=== PATIENT | female | born 1995 | race African-American/Black ===

== ENCOUNTER 2017-01-10 19:19 | Emergency (ER) | payer OTHER ==
[2017-01-10] MEDS ORDERED: traMADol HCl 50 MG TAB ONE (20:55)
== END 2017-01-10 21:05 | disposition home or self-care (01) ==
LOC: BURERS 19:19
DX: O9A.212 Injury, poisoning and certain other consequences of external causes complicating pregnancy, second trimester (principal); S23.3XXA Sprain of ligaments of thoracic spine, initial encounter; O99.342 Other mental disorders complicating pregnancy, second trimester; F32.9 Major depressive disorder, single episode, unspecified; W18.30XA Fall on same level, unspecified, initial encounter
CPT/HCPCS: 99283

== ENCOUNTER 2017-02-17 08:18 | Emergency (ER) | payer OTHER ==
[2017-02-17] MEDS ORDERED: hydrOXYzine 25 MG TAB ONE (08:41)
== END 2017-02-17 08:50 | disposition home or self-care (01) ==
LOC: BURERS 08:18
DX: T78.40XA Allergy, unspecified, initial encounter (principal); H02.841 Edema of right upper eyelid; F32.9 Major depressive disorder, single episode, unspecified
CPT/HCPCS: 99283

== ENCOUNTER 2017-02-19 07:54 | Emergency (ER) | payer OTHER | END 2017-02-19 08:26 | disposition home or self-care (01) | LOC: BURERS 07:54 | DX: T78.40XA Allergy, unspecified, initial encounter (principal); F32.9 Major depressive disorder, single episode, unspecified; Z79.899 Other long term (current) drug therapy | CPT/HCPCS: 99283 ==

== ENCOUNTER 2017-12-13 08:06 | Emergency (ER) | payer OTHER ==
[2017-12-13] MEDS ORDERED: CEFAZOLIN 1 GM VIAL ONE (08:31)
[2017-12-13] MEDS ORDERED: Water For Injection,Sterile 20 ML ONE (08:32)
[2017-12-13] MEDS ORDERED: Ketorolac Tromethamine 30 MG/ML VIAL ONE (08:54)
--- NOTE | 2017-12-13 20:23 | RAD ---
LEFT ANKLE THREE VIEWS: Date: 12-13-17 FINDINGS: No fracture or opaque foreign body is seen. The ankle joint appears normal. A tiny calcaneal spur is beginning to form. IMPRESSION: No acute finding. POS: HOME
== END 2017-12-13 09:00 | disposition home or self-care (01) ==
LOC: BURERS 08:06
DX: S91.032A Puncture wound without foreign body, left ankle, initial encounter (principal); F32.9 Major depressive disorder, single episode, unspecified; W22.8XXA Striking against or struck by other objects, initial encounter; Y93.19 Activity, other involving water and watercraft
CPT/HCPCS: 96372; J0690; J1885

== ENCOUNTER 2019-04-19 16:09 | Emergency (ER) | payer OTHER | END 2019-04-19 17:17 | disposition home or self-care (01) | LOC: BURERS 16:09 | DX: S51.812A Laceration without foreign body of left forearm, initial encounter (principal); Z79.899 Other long term (current) drug therapy; W23.0XXA Caught, crushed, jammed, or pinched between moving objects, initial encounter | CPT/HCPCS: 12002 ==

== ENCOUNTER 2019-07-12 08:45 | Emergency (ER) | payer OTHER ==
[2019-07-12] MEDS ORDERED: Bicillin CR 1.2 MILL UNITS/2 ML SYRINGE ONE (09:11)
== END 2019-07-12 09:21 | disposition home or self-care (01) ==
LOC: BURERS 08:45
DX: J02.9 Acute pharyngitis, unspecified (principal)
CPT/HCPCS: 96372; 99282; J0558

== ENCOUNTER 2019-11-07 16:05 | Emergency (ER) | payer OTHER ==
[~2019-11-07 16:05] MED LIST: Iopamidol 370 76% 100 ML VIAL ONE
[2019-11-07] MEDS ORDERED: Adenosine 6 MG/2 ML VIAL ONE (16:36)
[2019-11-07] MEDS ORDERED: Lorazepam 2 MG/ML VIAL ONE (17:03)
[2019-11-07 17:04] LABS: ALT (SGPT) 35 U/L (8-55); AST (SGOT) 28 U/L (5-34); Albumin 4.8 g/dL (3.5-5.0); Alkaline Phosphatase 55 U/L (40-110); Anion Gap 16 mmol/L (10-20); BUN (Urea Nitrogen) 13 mg/dL (7.0-18.7); Bilirubin, Total 0.5 mg/dL (0.2-1.2); Calc. Creatinine Clearance 0 mL/min (70-130); Calcium 9.8 mg/dL (7.8-10.44); Carbon Dioxide 22 mmol/L (22-29); Chloride 103 mmol/L (98-107); Estimated GFR-MDRD Greater than 90; Globulin 3.2 g/dL (2.4-3.5); Glucose 91 mg/dL (70-105); Sodium 137 mmol/L (136-145)
[2019-11-07 17:07] LABS: Eosinophils 1 % (0-10); Hemoglobin 14.6 g/dL (12.0-16.0); Lymphocytes 15 % (21-51); MDiff Complete? YES; Macrocytosis SLIGHT = 6-15 cells (100X) (0-5/hpf); Mean Corpuscular HGB CONC 32.6 g/dL (32.0-36.0); Mean Corpuscular Hemoglobin 33.6 pg (27.0-31.0); Mean Platelet Volume 8.1 fL (7.4-10.4); Monocytes 6 % (0-10); Neutrophil 78 % (42-75); Platelet Count 329 thou/uL (130-400); Red Blood Cell (RBC) Count 4.33 mill/uL (4.20-5.40); White Blood Cell (WBC) Count 8.3 thou/uL (4.8-10.8)
[2019-11-07 19:02] LABS: BHCG - Serum Negative (NEGATIVE); Pregs Control Background? CLEAR/WHITE (CLR/WHITE); Pregs Control Bar Appear? YES (CONTROL BAR)
--- NOTE | 2019-11-07 19:34 | RAD ---
PORTABLE CHEST 11/07/19 An AP portable film at 1637 is compared with a 06/30/16 study. The heart is normal in size and the lungs are clear. No infiltrate or effusion was seen. There is no vascular congestion, edema, or pleural effusion. IMPRESSION: No acute thoracic finding. POS: HOME
--- NOTE | 2019-11-07 19:37 | CT ---
CT ANGIO OF THE CHEST 11/07/[address] of the chest was done after a bolus of IV contrast. The timing of the study is less than op timal leading to a medium to low sensitivity study. Allowing for the above limitation, no large emboli are seen in the larger pulmonary artery branches. Small emboli in mid to distal branches would be missed on this exam. There is no sign of pericardial effusion, mediastinal mass, or adenopathy of concern. The lungs are clear. No infiltrates were presen t. The adrenal glands were unremarkable. A small cyst is seen in the upper pole of the right kidney. IMPRESSION: Medium to low sensitivity study showing no evidence of pulmonary embolism in the larger branches. Findings discussed with Dr. Sánchez at 1926 on 11/07/2019. POS: HOME
[2019-11-07] MEDS ORDERED: Metoprolol Tartrate 5 MG/5 ML VIAL ONE (20:05)
== END 2019-11-07 20:43 | disposition short-term general hospital (02) ==
LOC: BURERS 16:05
DX: R07.9 Chest pain, unspecified (principal); R00.0 Tachycardia, unspecified
CPT/HCPCS: 71045; 71275; 80053; 84443; 84484; 84703; 85025; 85379; 93005; 96361; 96374; 96375; J0153; J2060; Q9967

== ENCOUNTER 2020-08-12 07:59 | Emergency (ER) | payer OTHER, SELFPAY ==
[2020-08-12] MEDS ORDERED: Ibuprofen 200 MG TAB ONE (08:15)
--- NOTE | 2020-08-12 18:25 | RAD ---
LEFT THUMB THREE VIEWS: Date: 08-12-2020 FINDINGS: No fracture was seen. The joints appear normal. No dislocation was apparent at this time. A vague albin ency in the base of the proximal phalanx on the oblique view does not hold up on any other view. IMPRESSION: No definite acute finding. POS: HOME
== END 2020-08-12 08:44 | disposition home or self-care (01) ==
LOC: BURERS 07:59
DX: S63.602A Unspecified sprain of left thumb, initial encounter (principal); X50.1XXA Overexertion from prolonged static or awkward postures, initial encounter

== ENCOUNTER 2020-10-26 20:06 | Emergency (ER) | payer MEDICAID ==
--- NOTE | 2020-10-27 07:15 | RAD ---
SACRUM AND COCCYX: 10/26/20 TECHNIQUE: Three views are submitted. FINDINGS: No true fracture is appreciated, however, on one of the views the distance between the last coccygeal segment and the remainder of the spine seems increased. It may have been slightly displaced. The arcuate lines of the sacrum appear intact and the SI joints appear normal. The symphysis shows no widening or offset. IMPRESSION: Possible slight displacement of the last coccygeal segment. POS: HOME
== END 2020-10-26 21:15 | disposition home or self-care (01) ==
LOC: BURERS 20:06
DX: S30.0XXA Contusion of lower back and pelvis, initial encounter (principal); W19.XXXA Unspecified fall, initial encounter
CPT/HCPCS: 72220

== ENCOUNTER 2021-01-05 12:37 | Emergency (ER) | payer MEDICAID, OTHER ==
[2021-01-05] MEDS ORDERED: Bicillin LA 1.2 MILLION UNITS/2 ML SYRINGE ONE (13:08)
[2021-01-05] MEDS ORDERED: Ibuprofen 800 MG TAB ONE (13:11)
== END 2021-01-05 13:20 | disposition home or self-care (01) ==
LOC: BURERS 12:37
DX: J02.0 Streptococcal pharyngitis (principal); I10 Essential (primary) hypertension
CPT/HCPCS: 96372; 99283; J0561

== ENCOUNTER 2021-06-29 05:20 | Emergency (ER) | payer OTHER ==
[2021-06-29 06:11] LABS: #Basophils 0.1 thou/uL (0.0-0.2); #Eosinphils 0.1 thou/uL (0.0-0.7); #Lymphocytes 1.5 thou/uL (1.20-3.40); #Monocytes 0.7 thou/uL (0.11-0.59); #Neutrophils 3.4 thou/uL (1.40-6.50); %Basophils 1.6 % (0.0-1.0); %Eosinophils 2.1 % (0.0-10.0); %Lymphocytes 26.2 % (21.0-51.0); %Monocytes 11.3 % (0.0-10.0); %Neutrophils 58.8 % (42.0-75.0); Hemoglobin 12.4 g/dL (12.0-16.0); Mean Corpuscular HGB CONC 33.4 g/dL (32.0-36.0); Mean Corpuscular Hemoglobin 34.8 pg (27.0-31.0); Mean Platelet Volume 6.4 fL (7.4-10.4); Platelet Count 390 thou/uL (130-400); RBC Distribution Width 12.4 % (11.5-14.5); Red Blood Cell (RBC) Count 3.56 mill/uL (4.20-5.40); White Blood Cell (WBC) Count 5.9 thou/uL (4.8-10.8)
[2021-06-29 06:17] LABS: Bilirubin Negative (Negative); Blood, Urine Trace (Negative); Clarity Clear (Clear); Glucose, Urine (Dipstick) Negative (Negative); Ketone, Urine Negative (Negative); Leukocyte Negative (Negative); Nitrite Negative (Negative); Protein, Urine (Dipstick) Trace mg/dL (Neg-Trace); Specific Gravity, Urine 1.025 (1.005-1.030)
[2021-06-29 06:49] LABS: MDiff Complete? YES; Macrocytosis SLIGHT = 6-15 cells (100X) (0-5/hpf); Platelet Morphology Comment Appears Adequate
[2021-06-29 06:50] LABS: Bacteria/HPF Rare-Few HPF (None Seen); Calcium Oxalate Crystals 3+ HPF (None Seen); RBC/HPF 0-3 HPF (0-3); Squamous Epithelial 0-3 HPF (0-3); WBC/HPF 0-3 HPF (0-3)
== END 2021-06-29 06:30 | disposition home or self-care (01) ==
LOC: BURERS 05:20
DX: O26.851 Spotting complicating pregnancy, first trimester (principal); O26.891 Other specified pregnancy related conditions, first trimester; R10.9 Unspecified abdominal pain; O10.911 Unspecified pre-existing hypertension complicating pregnancy, first trimester; Z3A.08 8 weeks gestation of pregnancy
CPT/HCPCS: 81003; 81015; 84702; 85025; 99284

== ENCOUNTER 2021-10-13 08:41 | Emergency (ER) | payer OTHER ==
[2021-10-13] MEDS ORDERED: Acetaminophen 500 MG TAB ONE (10:08)
[2021-10-13] MEDS ORDERED: Bupivacaine 0.5% 10 ML VIAL ONE (10:08)
== END 2021-10-13 10:26 | disposition home or self-care (01) ==
LOC: BURERS 08:41
DX: K08.89 Other specified disorders of teeth and supporting structures (principal); K06.1 Gingival enlargement; I10 Essential (primary) hypertension
CPT/HCPCS: 64400; J3490

== ENCOUNTER 2024-08-15 13:36 | Outpatient (CLI) | payer OTHER | END 2024-08-15 13:37 | disposition home or self-care (01) | LOC: BUREKG 13:36 | PROVIDERS: ATTEND Plastic Surgery | DX: Z01.810 Encounter for preprocedural cardiovascular examination (principal) | CPT/HCPCS: 93005; 93010 ==